=== PATIENT | male | born 1950 | race African-American/Black ===

== ENCOUNTER 2021-09-11 16:51 | Emergency (ER) | payer MEDICARE, OTHER ==
[~2021-09-11] VITALS: Ht 167.6 cm; Wt 69.0 kg
[2021-09-11] MEDS ORDERED: ALBUTEROL (0.083%) 2.5MG/3ML NEB HHN STA (17:04)
[2021-09-11] MEDS ORDERED: METHYLPREDNISOLONE SOD SUCC 125 MG/2 ML VIAL IV STA (17:04)
[2021-09-11] MEDS ORDERED: IPRATROPIUM BROMIDE (0.02%) 0.5MG/2.5ML NEB HHN STA (17:04)
[2021-09-11 17:31] LABS: BASOPHILS % 1.1 % (0.0-2.0); EOSINOPHILS % 3.9 % (0.0-5.0); HEMATOCRIT. 45.5 % (42.0-52.0); HEMOGLOBIN. 14.9 g/dL (14.0-18.0); LYMPHOCYTES % 26.7 % (20.0-50.0); MEAN CORPUSCULAR HEMOGLOBIN 27.6 pg (28.0-32.0); MEAN CORPUSCULAR VOLUME 84.2 fL (80.0-94.0); MEAN PLATELET VOLUME 8.5 fl (7.4-10.4); MONOCYTES % 9.8 % (2.0-8.0); NEUTROPHILS % 58.5 % (40.0-76.0); PLATELET 216 x1000/uL (130-400); RED CELL DISTRIBUTION WIDTH 14.8 % (11.6-14.6)
[2021-09-11 17:35] LABS: CHLORIDE 106 mEq/L (98-107)
[2021-09-11] MEDS ORDERED: CEFTRIAXONE 1 G PREMIX 50 ML IV ONE (20:15)
[2021-09-11] MEDS ORDERED: AZITHROMYCIN 500MG/250ML 250 ML IV ONE (20:15)
[2021-09-11] MEDS ORDERED: P20 MT (20:20)
[2021-09-11] MEDS ORDERED: CEFD300C3 MT (20:20)
[2021-09-11] MEDS ORDERED: ALBU90AE INH (20:20)
[2021-09-11] MEDS ORDERED: IOHEXOL-350 100 ML BOTTLE ONE (20:21)
[2021-09-11 21:21] VITALS: BP 120/78
== END 2021-09-11 21:22 | disposition home or self-care (01) ==
LOC: ER 17:05 → CMPBEDREQ 21:54
DX: J44.1 Chronic obstructive pulmonary disease with (acute) exacerbation (principal); J18.9 Pneumonia, unspecified organism; E11.9 Type 2 diabetes mellitus without complications; I10 Essential (primary) hypertension; Z86.73 Personal history of transient ischemic attack (TIA), and cerebral infarction without residual deficits
CPT/HCPCS: 36415; 71045; 71275; 80053; 83880; 84484; 85025; 85379; 87040; 93005; 94640; 96365; 96368; 96375; 99284; J0456; J0696; J2930; Q9967